=== PATIENT | female | born 1990 | race Caucasian/White ===

== ENCOUNTER 2018-08-20 18:31 | Emergency (ER) | payer MEDICAID ==
[~2018-08-20] VITALS: Ht 162.6 cm; Wt 65.0 kg
[~2018-08-20 18:31] MED LIST: CITA20TA19 PO; DOCU-138 PO; LAM15 PO; MELO15TA13 PO; OMEG500C4 PO; PHEN100C4 PO; QUET300T2 PO; TOPI50TA PO; ZIPR60CA2 PO
[2018-08-20 22:56] LABS: CLARITY URINE CLEAR (CLEAR); COLOR URINE YELLOW (YELLOW); KETONES URINE TRACE (NEGATIVE); LEUKOCYTE ESTERASE URINE NEGATIVE (NEGATIVE); NITRITE URINE NEGATIVE (NEGATIVE); OCCULT BLOOD URINE NEGATIVE (NEGATIVE); PROTEIN URINE NEGATIVE (NEGATIVE); SPECIFIC GRAVITY URINE 1.024 (1.005-1.030); UROBILINOGEN URINE 0.2 E.U./dL (0.2-1.0)
[2018-08-20 23:06] LABS: *AMPHETAMINES SCREEN URINE NEGATIVE (NEGATIVE); *BARBITURATES SCREEN URINE NEGATIVE (NEGATIVE); *BENZODIAZEPINES SCREEN URINE NEGATIVE (NEGATIVE); *COCAINE SCREEN URINE NEGATIVE (NEGATIVE); METHADONE URINE SCREEN NEGATIVE (NEGATIVE); OPIATES URINE SCREEN NEGATIVE (NEGATIVE); PHENCYCLIDINE URINE SCREEN NEGATIVE (NEGATIVE)
[2018-08-20 23:07] LABS: CANNABINOID URINE SCREEN NEGATIVE (NEGATIVE)
[2018-08-20 23:11] LABS: BASOPHILS % 0.5 % (0.0-2.0); EOSINOPHILS % 1.2 % (0.0-5.0); HEMATOCRIT. 26.2 % (36.0-48.0); HEMOGLOBIN. 8.4 g/dL (12.0-16.0); LYMPHOCYTES % 39.1 % (20.0-50.0); MEAN CORPUSCULAR HEMOGLOBIN 27.1 pg (28.0-32.0); MEAN CORPUSCULAR VOLUME 84.6 fL (81.0-99.0); MEAN PLATELET VOLUME 10.7 fl (7.4-10.4); MONOCYTES % 6.1 % (2.0-8.0); NEUTROPHILS % 53.1 % (40.0-76.0); PLATELET 240 x1000/uL (130-400); RED CELL DISTRIBUTION WIDTH 15.2 % (11.6-14.6)
[2018-08-20 23:17] LABS: CHLORIDE 113 mEq/L (98-107)
[2018-08-20 23:23] LABS: ETHANOL BLOOD < 10 mg/dL
[2018-08-21] MEDS ORDERED: POTASSIUM CHLORIDE 20MEQ TABLET SR PO ONE (00:45)
[2018-08-21] MEDS ORDERED: POTASSIUM CHLORIDE 20MEQ TABLET SR PO NR ×2 (00:45→03:00)
[2018-08-22 15:41] LABS: HEMOGLOBIN 11.2 g/dL (12.0-16.0)
[2018-08-22 15:45] LABS: CHLORIDE 111 mEq/L (98-107)
[2018-08-23 08:23] VITALS: BP 112/69
== END 2018-08-23 12:21 | disposition home or self-care (01) ==
LOC: ER 18:31
DX: F32.9 Major depressive disorder, single episode, unspecified (principal); R45.851 Suicidal ideations; E87.6 Hypokalemia; F79 Unspecified intellectual disabilities; Z88.0 Allergy status to penicillin; Z79.899 Other long term (current) drug therapy
CPT/HCPCS: 36415; 80048; 80305; 80307; 80329; 81025; 85014; 85018; 99285

== ENCOUNTER 2018-11-02 19:26 | Emergency (ER) | payer MEDICAID ==
[~2018-11-02] VITALS: Ht 165.1 cm; Wt 52.0 kg
[2018-11-02 19:44] VITALS: BP 109/83
[2018-11-02] MEDS ORDERED: ACETAMINOPHEN 500MG TABLET PO ONE (20:30)
== END 2018-11-03 06:19 | disposition home or self-care (01) ==
LOC: ER 20:25
DX: G44.209 Tension-type headache, unspecified, not intractable (principal); G40.909 Epilepsy, unspecified, not intractable, without status epilepticus; F41.9 Anxiety disorder, unspecified; F31.9 Bipolar disorder, unspecified; G80.9 Cerebral palsy, unspecified; Z59.0 Homelessness; Z88.0 Allergy status to penicillin; Z79.899 Other long term (current) drug therapy
CPT/HCPCS: 81025; 99283